=== PATIENT | female | born 1980 | race African-American/Black ===

== ENCOUNTER 2017-11-27 06:02 | Emergency (ER) | payer MEDICAID, OTHER ==
[~2017-11-27] VITALS: Ht 170.2 cm; Wt 77.0 kg
[~2017-11-27 06:02] MED LIST: DILANTIN; PRENATAL VITAMINS
[2017-11-27 10:00] VITALS: BP 138/88
[2017-11-27] MEDS ORDERED: ACETAMINOPHEN 500MG TABLET PO ONE (10:30)
[2017-11-27] MEDS ORDERED: FAMOTIDINE 20MG TABLET PO ONE (10:30)
[2017-11-27 11:07] LABS: BASOPHILS % 0.1 % (0.0-2.0); EOSINOPHILS % 0.3 % (0.0-5.0); HEMOGLOBIN. 12.7 g/dL (12.0-16.0); LYMPHOCYTES % 17.6 % (20.0-50.0); MEAN CORPUSCULAR HEMOGLOBIN 24.1 pg (28.0-32.0); MEAN PLATELET VOLUME 8.7 fl (7.4-10.4); MONOCYTES % 6.8 % (2.0-8.0); NEUTROPHILS % 75.2 % (40.0-76.0); RED BLOOD CELL COUNT 5.26 mill/uL (4.2-5.4); RED CELL DISTRIBUTION WIDTH 15.1 % (11.6-14.6)
[2017-11-27 11:09] LABS: CLARITY URINE CLEAR (CLEAR); COLOR URINE YELLOW (YELLOW); KETONES URINE NEGATIVE (NEGATIVE); LEUKOCYTE ESTERASE URINE TRACE (NEGATIVE); NITRITE URINE NEGATIVE (NEGATIVE); OCCULT BLOOD URINE NEGATIVE (NEGATIVE); PH URINE 6.5 (4.5-8.0); PROTEIN URINE NEGATIVE (NEGATIVE); SPECIFIC GRAVITY URINE 1.008 (1.005-1.030); UROBILINOGEN URINE 0.2 E.U./dL (0.2-1.0)
[2017-11-27 11:14] LABS: CHLORIDE 110 mEq/L (98-107)
[2017-11-27 11:23] LABS: CARBON DIOXIDE 21 mEq/L (21-32)
[2017-11-27 11:41] LABS: PLATELET 275 x1000/uL (130-400)
== END 2017-11-27 13:22 | disposition home or self-care (01) ==
LOC: ER 06:02
DX: K29.00 Acute gastritis without bleeding (principal); J06.9 Acute upper respiratory infection, unspecified; I10 Essential (primary) hypertension; F99 Mental disorder, not otherwise specified; G40.909 Epilepsy, unspecified, not intractable, without status epilepticus; F14.10 Cocaine abuse, uncomplicated
CPT/HCPCS: 36415; 71045; 80053; 81001; 81025; 83690; 85025; 99285

== ENCOUNTER 2019-01-04 02:33 | Inpatient (IN) | payer MEDICAID ==
[~2019-01-04] VITALS: Ht 165.1 cm; Wt 72.6 kg
[2019-01-04] MEDS ORDERED: EPINEPHRINE 1:1000 1 MG/ML AMP IM ONE (04:15)
[2019-01-04] MEDS ORDERED: SODIUM CHLORIDE 0.9% 1,000 ML IV SCH (04:15)
[2019-01-04] MEDS ORDERED: FAMOTIDINE 20MG/2ML VIAL IV ONE (04:15)
[2019-01-04] MEDS ORDERED: DIPHENHYDRAMINE 50MG/ML VIAL IV ONE (04:15)
[2019-01-04] MEDS ORDERED: METHYLPREDNISOLONE SOD SUCC 125 MG/2 ML VIAL IV ONE (04:15)
[2019-01-04 05:45] LABS: BASOPHILS % 0.8 % (0.0-2.0); EOSINOPHILS % 0.1 % (0.0-5.0); HEMATOCRIT. 37.2 % (36.0-48.0); HEMOGLOBIN. 11.6 g/dL (12.0-16.0); LYMPHOCYTES % 28.1 % (20.0-50.0); MEAN CORPUSCULAR HEMOGLOBIN 23.9 pg (28.0-32.0); MEAN CORPUSCULAR VOLUME 76.5 fL (81.0-99.0); MEAN PLATELET VOLUME 7.5 fl (7.4-10.4); MONOCYTES % 11.3 % (2.0-8.0); NEUTROPHILS % 59.7 % (40.0-76.0); PLATELET 347 x1000/uL (130-400); RED BLOOD CELL COUNT 4.86 mill/uL (4.2-5.4); RED CELL DISTRIBUTION WIDTH 14.2 % (11.6-14.6)
[2019-01-04 05:52] LABS: CHLORIDE 105 mEq/L (98-107)
[2019-01-04] MEDS ORDERED: IPRATROPIUM/ALBUTEROL 0.5-3(2.5)MG/3ML NEB HHN PRN (12:30)
[2019-01-04 12:45] VITALS: BP 147/94
[2019-01-04] MEDS: METHYLPREDNISOLONE SOD SUCC 40 MG/ML VIAL IV SCH ×2 (13:41→21:02)
[2019-01-04] MEDS: DIPHENHYDRAMINE 50MG/ML VIAL IV PRN ×2 (13:41→22:32)
[2019-01-04 16:34] LABS: BASOPHILS % 0.1 % (0.0-2.0); HEMATOCRIT. 36.1 % (36.0-48.0); HEMOGLOBIN. 11.2 g/dL (12.0-16.0); LYMPHOCYTES % 14.9 % (20.0-50.0); MEAN CORPUSCULAR HEMOGLOBIN 23.5 pg (28.0-32.0); MEAN CORPUSCULAR VOLUME 75.8 fL (81.0-99.0); MEAN PLATELET VOLUME 8.1 fl (7.4-10.4); MONOCYTES % 1.3 % (2.0-8.0); NEUTROPHILS % 83.7 % (40.0-76.0); PLATELET 334 x1000/uL (130-400); RED BLOOD CELL COUNT 4.76 mill/uL (4.2-5.4); RED CELL DISTRIBUTION WIDTH 14.3 % (11.6-14.6)
[2019-01-04 16:47] LABS: CHLORIDE 107 mEq/L (98-107)
[2019-01-04 19:56] VITALS: BP 136/83
[2019-01-04] MEDS: FAMOTIDINE 20MG/2ML VIAL IV SCH (21:02)
[2019-01-05] VITALS: BP 132/72
[2019-01-05 04:00] VITALS: BP 121/67
[2019-01-05] MEDS: METHYLPREDNISOLONE SOD SUCC 40 MG/ML VIAL IV SCH (06:01)
[2019-01-05 06:45] LABS: CHLORIDE 109 mEq/L (98-107)
[2019-01-05 06:51] LABS: BASOPHILS % 0.1 % (0.0-2.0); HEMATOCRIT. 33.7 % (36.0-48.0); HEMOGLOBIN. 10.5 g/dL (12.0-16.0); MEAN CORPUSCULAR HEMOGLOBIN 23.5 pg (28.0-32.0); MEAN CORPUSCULAR VOLUME 75.5 fL (81.0-99.0); MEAN PLATELET VOLUME 8.1 fl (7.4-10.4); MONOCYTES % 4.1 % (2.0-8.0); NEUTROPHILS % 79.8 % (40.0-76.0); PLATELET 318 x1000/uL (130-400); RED BLOOD CELL COUNT 4.47 mill/uL (4.2-5.4); RED CELL DISTRIBUTION WIDTH 14.1 % (11.6-14.6)
[2019-01-05 08:00] VITALS: BP 121/70
[2019-01-05] MEDS: FAMOTIDINE 20MG/2ML VIAL IV SCH (09:06)
[2019-01-05 10:45] VITALS: BP 121/70
[2019-01-05 12:00] VITALS: BP 123/73
== END 2019-01-05 12:15 | disposition home or self-care (01) | DRG 811 ==
LOC: ER 03:11 → 8WST 05:31 → ENRESERV 12:07
PROVIDERS: ADMIT Internal Medicine; ATTEND Internal Medicine
DX: T78.04XA Anaphylactic reaction due to fruits and vegetables, initial encounter (principal); R65.10 Systemic inflammatory response syndrome (SIRS) of non-infectious origin without acute organ dysfunction; L29.9 Pruritus, unspecified; R00.0 Tachycardia, unspecified; Z79.899 Other long term (current) drug therapy
CPT/HCPCS: 36415; 71045; 80048; 93005; 96374; 96375; 99285; J1200; J2920; J2930; J3490; J7620

== ENCOUNTER 2021-09-26 04:02 | Emergency (ER) | payer MEDICAID ==
[~2021-09-26] VITALS: Ht 167.6 cm; Wt 77.0 kg
[2021-09-26] MEDS ORDERED: HYDROCODONE/ACETAMINOPHEN 5/325MG TABLET PO STA (04:34)
[2021-09-26] MEDS ORDERED: VANCOMYCIN 1 G PREMIX 200 ML IV ONE (04:45)
[2021-09-26] MEDS ORDERED: SODIUM CHLORIDE 0.9% 1,000 ML IV ONE (04:45)
[2021-09-26] MEDS ORDERED: PIPERACILLIN/TAZ 3.375G PREMIX 50 ML IV ONE (04:45)
[2021-09-26 05:19] LABS: BASOPHILS % 0.4 % (0.0-2.0); EOSINOPHILS % 0.5 % (0.0-5.0); HEMATOCRIT. 34.7 % (36.0-48.0); HEMOGLOBIN. 11.1 g/dL (12.0-16.0); LYMPHOCYTES % 23.7 % (20.0-50.0); MEAN CORPUSCULAR HEMOGLOBIN 23.6 pg (28.0-32.0); MEAN CORPUSCULAR VOLUME 74.1 fL (81.0-99.0); MEAN PLATELET VOLUME 7.4 fl (7.4-10.4); MONOCYTES % 8.3 % (2.0-8.0); NEUTROPHILS % 67.1 % (40.0-76.0); PLATELET 386 x1000/uL (130-400); RED BLOOD CELL COUNT 4.68 mill/uL (4.2-5.4); RED CELL DISTRIBUTION WIDTH 14.2 % (11.6-14.6)
[2021-09-26 05:21] LABS: CHLORIDE 104 mEq/L (98-107)
[2021-09-26 05:39] LABS: INR 1.1; PROTHROMBIN TIME 11.9 sec (9.6-11.0)
[2021-09-26] MEDS ORDERED: IOHEXOL-300 100 ML BOTTLE ONE (07:07)
[2021-09-26] MEDS ORDERED: KETOROLAC 30MG/ML VIAL IV ONE (08:00)
[2021-09-26] MEDS ORDERED: LIDOCAINE HCL 1% 10 MG/ML 10ML VIAL ONE (08:15)
[2021-09-26] MEDS ORDERED: KETOROLAC 30MG/ML VIAL IV SCH (14:30)
[2021-09-26] MEDS ORDERED: PIPERACILLIN/TAZ 3.375G PREMIX 50 ML IV STA (14:39)
[2021-09-26] MEDS ORDERED: DEXT 5%/0.45% NACL KCL 20MEQ/L 1,000 ML IV ONE (14:45)
[2021-09-26] MEDS ORDERED: VANCOMYCIN 1 G PREMIX 200 ML IV SCH ×2 (14:45→17:00)
[2021-09-26 20:09] VITALS: BP 128/74
[2021-09-26] MEDS ORDERED: PIPERACILLIN/TAZOBACTAM 3.375G in DEXT 5% WATER 50ML IV SCH (22:00)
== END 2021-09-26 21:08 | disposition short-term general hospital (02) ==
LOC: ER 04:02
DX: L03.114 Cellulitis of left upper limb (principal); L03.113 Cellulitis of right upper limb; F15.10 Other stimulant abuse, uncomplicated; F11.10 Opioid abuse, uncomplicated; F17.210 Nicotine dependence, cigarettes, uncomplicated; Z20.822 Contact with and (suspected) exposure to COVID-19; Z91.018 Allergy to other foods
CPT/HCPCS: 36415; 36573; 71045; 73090; 73120; 73201; 80053; 81025; 83605; 84145; 85025; 85610; 85651; 86140; 87040; 87426; 96365; 96366; 96367; 96375; 99285; C1725; C1769; J1885; J2543; J3370; J3490; J7030; Q9967; Z7610